=== PATIENT | male | born 1955 | race Caucasian/White ===

== ENCOUNTER 2018-12-26 13:35 | Emergency (ER) | payer OTHER ==
[~2018-12-26 13:35] MED LIST: Lactated Ringers 1,000 ML ONE; fentaNYL 100 MCG/2 ML SDV ONE
[2018-12-26] MEDS ORDERED: Lactated Ringers 1,000 ML IV SCH (13:48)
[2018-12-26] MEDS ORDERED: fentaNYL 100 MCG/2 ML SDV IVPUSH ONE (13:48)
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
[2018-12-26] MEDS ORDERED: ceFAZolin 1 GM Vial IVPUSH ONE (14:32)
== END 2018-12-26 15:06 ==
LOC: CC.ED 13:35
DX: S61.402A Unspecified open wound of left hand, initial encounter (principal); I10 Essential (primary) hypertension; M19.90 Unspecified osteoarthritis, unspecified site; Z79.82 Long term (current) use of aspirin; W32.0XXA Accidental handgun discharge, initial encounter
CPT/HCPCS: 73130; 96365; 96374; 99285; J0690; J3010; J7120; 96360